=== PATIENT | female | born 1960 | race American Indian/Alaskan Native ===

== ENCOUNTER 2024-12-14 22:24 | Emergency (ER) | payer OTHER, SELFPAY ==
[2024-12-14 22:26] VITALS: BP 106/69
[2024-12-14 22:30] LABS: Glucose - Point of Care 225 mg/dl (70-99)
--- NOTE | 2024-12-14 22:50 | ED.GENMED ---
History of Present Illness
<Nallely Dela Cruz [employer] - Last Filed: 12/15/24 01:00>
General
Chief Complaint: Abdominal Symptoms
Source: patient and family (Daughter at bedside)
Exam Limitations: none
Time Seen by Provider: 12/14/24 22:40
Nursing documentation reviewed up to this point in time: agreed with
History of Present Illness
History of Present Illness:
64-year-old female with history of HTN, HLD, NIDDM, hysterectomy presents for nausea, vomiting, diarrhea, leg cramps, 'heartburn.' She also has 'mild' right lower quadrant pain that comes and goes. At home just prior to coming here, she went to
the bathroom, got dizzy and faltered but did not fall. She denies headache, shortness of breath or UTI symptoms. Denies fever or chills.
Her grandson with whom she lives had similar symptoms for a week and he started feeling better 2 days ago.
Past History
<Nallely Dela Cruz, [employer] - Last Filed: 12/15/24 01:00>
Past History
ED Past Medical History: HTN, Hypercholesterolemia and NIDDM
ED Past Surgical History: Gynecological (Hysterectomy)
Social History
Tobacco: Non-smoker
Alcohol: None
Living: with family
Review of Systems
<Nallely Dela Cruz, [employer] - Last Filed: 12/15/24 01:00>
Review of Systems
Allergies reviewed?: Yes
Other source history: family
All Other Systems: ROS reviewed and negative except as documented in HPI and ROS
Constitutional: Denies fever
Respiratory: Denies trouble breathing
Cardiac: Denies chest pain, diaphoresis or palpitations
ABD/GI: Reports abdominal pain ('Indigestion'), nausea, vomiting and diarrhea; Denies bloody stools or black stools
: Denies dysuria, frequency, difficulty voiding or urgency
Musculoskeletal: Reports no symptoms
Skin: Reports no symptoms
Neurological: Reports dizzy (Had episode dizziness at home prior to arrival but denies dizziness now)
Phy Exam
<Nallely Dela Cruz NP - Last Filed: 12/15/24 01:00>
Physical Exam
Physical Exam:
GENERAL: No acute distress. A&Ox3.
CONSTITUTIONAL: Afebrile.
EYES: clear, conjunctivae normal
ENMT: moist mucus membranes, Pharynx nl
RESPIRATORY: Regular respirations, nonlabored, lungs clear.
CARDIOVASCULAR: Regular rate and rhythm, tachycardic at a rate of 133, no murmurs, no rubs.
GI: Soft, mild tenderness right side abdomen, nondistended, normal BS
MUSCULOSKELETAL: Moves with ease. Well perfused. No edema
SKIN: Warm, dry, normal
PSYCH: Anxious mood and affect. Well kept, interactive and appropriate
NEUROLOGIC: Awake, alert and oriented. No focal neurological deficits
Sepsis
<Carolina Retana PA-C - Last Filed: 12/15/24 05:01>
Sepsis Screening
Sepsis Assessment: Sepsis Ruled Out
Sepsis Screen
Sepsis Screen: Sepsis Ruled Out
Date: 12/15/24
Time: 05:01
Course
<Nallely Dela Cruz, [employer] - Last Filed: 12/15/24 01:00>
Orders/Labs/Results
Orders:
Orders
12/14/24 22:31
EKG with chest pain [ECG as needed] As Directed
ECG as needed for:: Chest Pain
12/14/24 22:48
0.9% Sodium Chloride 1000 ml [Nss] 1,000 ml IV BOLUS
Ondansetron Injectable [Zofran] 4 mg IV NOW STA
12/14/24 23:05
Complete Blood Count/With Diff Urgent
Comprehensive Metabolic Panel Urgent
Lipase Urgent
Magnesium Urgent
Troponin I Urgent
04/02/25 00:27
0.9% Sodium Chloride 1000 ml [Nss] 1,000 ml IV BOLUS
12/15/24 01:50
Complete Blood Count/With Diff Urgent
Comprehensive Metabolic Panel Urgent
12/15/24 03:48
Metoprolol Xl [Toprol Xl] 50 mg PO NOW STA
Abnormal Lab Results
12/14/24 12/14/24 12/15/24
22:29 23:05 01:50
WBC 13.6 H 10^3/uL
(4.8-10.8)
RBC 5.79 H 10^6/uL
(4.20-5.40)
Hgb 17.0 H g/dL
(12.0-16.0)
Hct 48.7 H %
(37.0-47.0)
Plt Count 403 H 10^3/uL
(130-400)
Abs Immat Gran (auto) 0.1 H 10^3/uL
(0-0.05)
Absolute Neuts (auto) 12.1 H 10^3/uL 8.7 H 10^3/uL
(1.4-6.5) (1.4-6.5)
Absolute Lymphs (auto) 0.7 L 10^3/uL 0.6 L 10^3/uL
(1.2-3.4) (1.2-3.4)
Absolute Monos (auto) 0.7 H 10^3/uL 0.7 H 10^3/uL
(0.1-0.6) (0.1-0.6)
Neutrophils % 89.0 H % 87.1 H %
(42.2-75.2) (42.2-75.2)
Lymphocytes % 5.0 L % 5.7 L %
(20.5-51.1) (20.5-51.1)
Potassium 5.6 H mmol/L
(3.5-5.1)
Chloride 116 H mmol/L
(98-107)
Carbon Dioxide 18 L mmol/L 18 L mmol/L
(22-30) (22-30)
BUN 18 H mg/dl
(7-17)
Creatinine 1.4 H mg/dL 1.1 H mg/dL
(0.6-1.0) (0.6-1.0)
Glucose 206 H mg/dl 122 H mg/dl
(70-99) (70-99)
Calcium 11.5 H mg/dl
(8.4-10.2)
AST 71 H U/L 49 H U/L
(14-36) (14-36)
ALT 96 H U/L 76 H U/L
(0-35) (0-35)
Alkaline Phosphatase 140 H U/L
(38-126)
Total Protein 9.9 H g/dl
(6.3-8.2)
Albumin 5.5 H g/dl
(3.5-5.0)
POC Glucose 225 H mg/dl
(70-99)
12/15/24 01:50
12/15/24 01:50
Vital Signs
Initial and Last Documented VS:
Initial Vital Signs
Temp Pulse Resp BP Pulse Ox
97.4 F 133 18 106/69 94
12/14/24 22:26 12/14/24 22:26 12/14/24 22:26 12/14/24 22:26 12/14/24 22:26
Last Documented Vital Signs
Temp Pulse Resp BP Pulse Ox
97.4 F 112 21 133/65 95
12/14/24 22:26 12/15/24 04:30 12/15/24 04:30 12/15/24 03:53 12/15/24 04:30
Donaldlt;Carolina Retana PA-C - Last Filed: 12/15/24 05:01>
Orders/Labs/Results
Orders:
Orders
12/14/24 22:31
EKG with chest pain [ECG as needed] As Directed
ECG as needed for:: Chest Pain
12/14/24 22:48
0.9% Sodium Chloride 1000 ml [Nss] 1,000 ml IV BOLUS
Ondansetron Injectable [Zofran] 4 mg IV NOW STA
12/14/24 23:05
Complete Blood Count/With Diff Urgent
Comprehensive Metabolic Panel Urgent
Lipase Urgent
Magnesium Urgent
Troponin I Urgent
12/15/24 00:27
0.9% Sodium Chloride 1000 ml [Nss] 1,000 ml IV BOLUS
12/15/24 01:50
Complete Blood Count/With Diff Urgent
Comprehensive Metabolic Panel Urgent
12/15/24 03:48
Metoprolol Xl [Toprol Xl] 50 mg PO NOW STA
Abnormal Lab Results
12/14/24 12/14/24 12/15/24
22:29 23:05 01:50
WBC 13.6 H 10^3/uL
(4.8-10.8)
RBC 5.79 H 10^6/uL
(4.20-5.40)
Hgb 17.0 H g/dL
(12.0-16.0)
Hct 48.7 H %
(37.0-47.0)
Plt Count 403 H 10^3/uL
(130-400)
Abs Immat Gran (auto) 0.1 H 10^3/uL
(0-0.05)
Absolute Neuts (auto) 12.1 H 10^3/uL 8.7 H 10^3/uL
(1.4-6.5) (1.4-6.5)
Absolute Lymphs (auto) 0.7 L 10^3/uL 0.6 L 10^3/uL
(1.2-3.4) (1.2-3.4)
Absolute Monos (auto) 0.7 H 10^3/uL 0.7 H 10^3/uL
(0.1-0.6) (0.1-0.6)
Neutrophils % 89.0 H % 87.1 H %
(42.2-75.2) (42.2-75.2)
Lymphocytes % 5.0 L % 5.7 L %
(20.5-51.1) (20.5-51.1)
Potassium 5.6 H mmol/L
(3.5-5.1)
Chloride 116 H mmol/L
(98-107)
Carbon Dioxide 18 L mmol/L 18 L mmol/L
(22-30) (22-30)
BUN 18 H mg/dl
(7-17)
Creatinine 1.4 H mg/dL 1.1 H mg/dL
(0.6-1.0) (0.6-1.0)
Glucose 206 H mg/dl 122 H mg/dl
(70-99) (70-99)
Calcium 11.5 H mg/dl
(8.4-10.2)
AST 71 H U/L 49 H U/L
(14-36) (14-36)
ALT 96 H U/L 76 H U/L
(0-35) (0-35)
Alkaline Phosphatase 140 H U/L
(38-126)
Total Protein 9.9 H g/dl
(6.3-8.2)
Albumin 5.5 H g/dl
(3.5-5.0)
POC Glucose 225 H mg/dl
(70-99)
12/15/24 01:50
12/15/24 01:50
Vital Signs
Initial and Last Documented VS:
Initial Vital Signs
Temp Pulse Resp BP Pulse Ox
97.4 F 133 18 106/69 94
12/14/24 22:26 12/14/24 22:26 12/14/24 22:26 12/14/24 22:26 12/14/24 22:26
Last Documented Vital Signs
Temp Pulse Resp BP Pulse Ox
97.4 F 112 21 133/65 95
12/14/24 22:26 12/15/24 04:30 12/15/24 04:30 12/15/24 03:53 12/15/24 04:30
<Nallely Dela Cruz [employer] - Last Filed: 12/15/24 01:00>
MDM/Problems Addressed
Differential Diagnosis Includes:
Dehydration, viral gastroenteritis
MDM/Problems Addressed:
64-year-old female with history of HTN, HLD, NIDDM, hysterectomy presents for nausea, vomiting, diarrhea, leg cramps, 'heartburn.' She also has 'mild' right lower quadrant pain that comes and goes. At home just prior to coming here, she went to
the bathroom, got dizzy and faltered but did not fall. She denies headache, shortness of breath or UTI symptoms. Denies fever or chills.
Her grandson with whom she lives had similar symptoms for a week and he started feeling better 2 days ago.
Afebrile, tachycardic at 133
12:20 PM:
CBC: WBC 13.6 with left shift
CMP: Potassium 5.6 BUN/creat 18/1.4, glucose 206, mildly elevated liver enzymes most likely reactive
Above lab abnormalities most likely from dehydration
Troponin 0.18
After 1 L NSS, pt feeling better HR 120
No diarrhea since arrival
Plan: Second bag IVF's, recheck CBC, CMP, if improved, OK for discharge
Case discussed with Carolina GONZALEZ who will assume care from this point.
<Carolina Retana PA-C - Last Filed: 12/15/24 05:01>
*Critical Care Note
Total Time (30-74mins, 75-104mins- exclusive of procedures): Not Applicable
<Carolina Retana PA-C - Last Filed: 12/15/24 05:01>
Update Note
Update Note:
3:49 am-- sign out from Mariah Dela Cruz [employer]
Patient lab work has improved and patient feels well however patient continues to be tachycardic in the 120s after 2L of IV fluids. Patient does take metoprolol XL 50 mg daily and she did not receive her dose today. She does state that she feels
well and is no longer having any nausea, vomiting or diarrhea and does want to go home. Will give her dose of metoprolol that she missed and will reassess.
On reassessment, patient's heart rate did come down. She is still feeling well. In light of improvement of blood work and symptoms, will discharge. Did stress that she will need repeat CBC and CMP in 1 week and discussed strict return
precautions. Case reviewed with my attending.
ED Attending Note
<Nallely Dela Cruz [employer] - Last Filed: 12/15/24 01:00>
-
Portions of this chart may have been created with voice recognition software.� Occasional wrong word or��sound alike� substitutions may have occurred due to the inherent limitations of voice recognition software.
Discharge Plan
Departure
Patient Disposition: Home (Routine Discharge)
Date of Disposition: 12/15/24
Time of Disposition: 04:56
Patient with high blood pressure during this ER visit?: Yes
Condition: Good
Discharge Problem:
Viral gastroenteritis
Instructions: Viral gastroenteritis in adults, Nausea and Vomiting, Adult (DC)
Prescriptions:
New
ondansetron 4 mg tablet,disintegrating
4 mg PO Q8H 3 Days Qty: 10 0RF
No Action
multivitamin Tablet
1 tab PO DAILY
losartan 50 mg Tablet
50 mg PO DAILY
atorvastatin 20 mg Tablet
20 mg PO HS
meloxicam 15 mg Tablet
15 mg PO DAILY PRN (Reason: pain)
isosorbide mononitrate 30 mg Tablet Extended Release 24 Hr
30 mg PO DAILY
amlodipine 2.5 mg Tablet
2.5 mg PO DAILY
methotrexate sodium 2.5 mg Tablet
2.5 mg PO QWEEK
levothyroxine [Synthroid] 50 mcg Tablet
50 mcg PO DAILY
nitroglycerin 0.4 mg Tablet, Sublingual
0.4 mg SUBLINGUAL Q5-15M PRN (Reason: chest pain)
aspirin 81 mg Tablet
81 mg PO DAILY
metformin 500 mg Tablet Extended Release 24 Hr
500 mg PO DAILY
melatonin 5 mg Tablet
5 mg PO HS
metoprolol succinate 50 mg Capsule,Sprinkle,Er 24hr
50 mg PO DAILY
Referrals:
Aracelis Putnam DO [Family Provider] - As needed
Activity Restrictions/Additional Instructions:
As we discussed, drink plenty of fluids
I sent a prescription to your pharmacy for Zofran to use if needed for nausea/vomiting
See your doctor in 2-3 days if not much improved by then.

Please have your CBC, CMP blood work repeated in 1 week.
PLEASE RETURN EMERGENCY DEPARTMENT SHOULD YOU DEVELOP ABDOMINAL PAIN, INTRACTABLE NAUSEA OR VOMITING, RECTAL BLEEDING, DARK TARRY STOOLS, LIGHTHEADEDNESS, DIZZINESS, FEVERS OR CHILLS, CONFUSION, ANY OTHER SIGNS OR SYMPTOMS WORRISOME TO YOU.
Interventions
Interventions:
*Risk Screen - Suicide Last Done: 12/14/24 22:26
*General Assessment Last Done: 12/14/24 22:26
*Neglect/Abuse Screening Last Done: 12/14/24 22:26
*ED- Fall Risk Assessment Last Done: 12/14/24 23:00
*ED COVID-19 Vaccine History Last Done: 12/14/24 23:00
AT-Atcgtn-Koclvqjlam Assessment Last Done: 12/15/24 01:35
Discharge Date and Time
Print Language: MACANESE
[2024-12-14 22:53] VITALS: BMI 27.7
[2024-12-14] MEDS: NSS 1000 IV (23:39)
[2024-12-14] MEDS: ZOFRAN 4 MG IV (23:40)
[2024-12-14 23:59] LABS: % Basophils 0.4 % (0-2); % Eosinophils 0.1 % (0-6); % Immature Granulocytes 0.4 % (0-0.5); % Monocytes 5.1 % (1.7-9.3); Absolute Basophils 0.1 10^3/uL (0-0.2); Absolute Immature Granulocytes 0.1 10^3/uL (0-0.05); Absolute Lymphocytes 0.7 10^3/uL (1.2-3.4); Absolute Monocytes 0.7 10^3/uL (0.1-0.6); Absolute Neutrophils 12.1 10^3/uL (1.4-6.5); Hematocrit 48.7 % (37.0-47.0); Mean Corp Hgb Conc. 34.9 g/dL (33.0-37.0); Mean Corpuscular Hgb 29.4 pg (27.0-31.0); Mean Corpuscular Volume 84.1 fL (81.0-99.0); Mean Platelet Volume 9.6 fL (7.4-10.4); Nucleated Red Blood Cells % 0 %; Platelet Count 403 10^3/uL (130-400); Red Blood Cell Count 5.79 10^6/uL (4.20-5.40); White Blood Cell Count 13.6 10^3/uL (4.8-10.8)
[2024-12-15 00:04] LABS: ALT (SGPT) 96 U/L (0-35); AST (SGOT) 71 U/L (14-36); Albumin 5.5 g/dl (3.5-5.0); Alkaline Phosphatase 140 U/L (38-126); Blood Urea Nitrogen 18 mg/dl (7-17); Calcium 11.5 mg/dl (8.4-10.2); Carbon Dioxide 18 mmol/L (22-30); Chloride 106 mmol/L (98-107); Estimated Creatinine Clearance 38 ml/min; Glucose 206 mg/dl (70-99); Lipase 104 U/L (23-300); Magnesium 1.7 mg/dl (1.6-2.3); Potassium 5.6 mmol/L (3.5-5.1); Sodium 142 mmol/L (135-145); Total Bilirubin 0.8 mg/dl (0.2-1.3); Total Protein 9.9 g/dl (6.3-8.2); eGFR 41.75
[2024-12-15 00:17] LABS: Troponin I 0.018 ng/ml
[2024-12-15] MEDS: NSS 1000 IV (00:39)
[2024-12-15 01:18] VITALS: BP 133/65
[2024-12-15 02:07] LABS: % Basophils 0.2 % (0-2); % Immature Granulocytes 0.4 % (0-0.5); % Lymphocytes 5.7 % (20.5-51.1); % Monocytes 6.6 % (1.7-9.3); % Neutrophils 87.1 % (42.2-75.2); Absolute Lymphocytes 0.6 10^3/uL (1.2-3.4); Absolute Monocytes 0.7 10^3/uL (0.1-0.6); Absolute Neutrophils 8.7 10^3/uL (1.4-6.5); Hematocrit 38.6 % (37.0-47.0); Hemoglobin 13.6 g/dL (12.0-16.0); Mean Corp Hgb Conc. 35.2 g/dL (33.0-37.0); Mean Corpuscular Volume 85.2 fL (81.0-99.0); Mean Platelet Volume 9.5 fL (7.4-10.4); Nucleated Red Blood Cells % 0 %; Platelet Count 255 10^3/uL (130-400); Red Blood Cell Count 4.53 10^6/uL (4.20-5.40); Red Cell Dist. Width 12.9 % (11.5-14.5)
[2024-12-15 03:09] LABS: ALT (SGPT) 76 U/L (0-35); AST (SGOT) 49 U/L (14-36); Albumin 3.9 g/dl (3.5-5.0); Alkaline Phosphatase 105 U/L (38-126); Blood Urea Nitrogen 16 mg/dl (7-17); Calcium 9.1 mg/dl (8.4-10.2); Carbon Dioxide 18 mmol/L (22-30); Chloride 116 mmol/L (98-107); Estimated Creatinine Clearance 48 ml/min; Glucose 122 mg/dl (70-99); Potassium 4.5 mmol/L (3.5-5.1); Sodium 145 mmol/L (135-145); Total Bilirubin 0.5 mg/dl (0.2-1.3); Total Protein 6.8 g/dl (6.3-8.2); eGFR 55.76
[2024-12-15] MEDS: TOPROL XL 50 MG PO (03:53)
== END 2024-12-15 05:00 | disposition home or self-care (01) ==
LOC: EMR 22:24
PROVIDERS: Registered Nurse; EMERGENCY PHYSICIAN Emergency Medicine; FAMILY PHYSICIAN Student in an Organized Health Care Education/Training Program
DX: A08.4 Viral intestinal infection, unspecified (principal); I10 Essential (primary) hypertension; E78.00 Pure hypercholesterolemia, unspecified; E11.9 Type 2 diabetes mellitus without complications
CPT/HCPCS: 99284; 96374; 96361; 80053; 82962; 83690; 83735; 84484; 85025; 93005